=== PATIENT | female | born 1960 | race Caucasian/White ===

== ENCOUNTER 2022-08-18 10:08 | Day surgery (SDC) | payer OTHER ==
[2022-08-18] MEDS ORDERED: Depo-Medrol 40 MG/ML IM ONE (10:09)
[2022-08-18] MEDS ORDERED: Sodium Chloride 0.9(Preservative Free) 10 ML IJ ONE (10:09)
[2022-08-18] MEDS ORDERED: DIPRIVAN 200 MG/20 ML IV ONE (12:08)
[2022-08-18] MEDS ORDERED: Lactated Ringers 1,000 ML IV ONE (14:07)
--- NOTE | 2022-08-18 16:31 | XRAY ---
Indication: Left L3-L5 transforaminal [place]. Intraoperative fluoroscopy provided for 23 seconds. 4 digital spot image submitted for interpretation demonstrates posterior needle tips projecting over the expected left L3 and L4 nerve roots. Small amount of contrast injected for needle tip placement. Correlate with intraoperative findings/report.
--- NOTE | 2022-08-18 16:37 | XRAY ---
23 seconds of fluoroscopy was used in surgery for a left L3-L5 transforaminal [place].
== END 2022-08-18 12:40 | disposition home or self-care (01) ==
LOC: SDC-PAIN 10:08
PROVIDERS: ATTEND Psychiatry & Neurology Pain Medicine
DX: M54.16 Radiculopathy, lumbar region (principal); Z79.899 Other long term (current) drug therapy
CPT/HCPCS: 64483; 64484; 72100; 77003; J1030; J2704; Q9966

== ENCOUNTER 2022-11-10 14:47 | Day surgery (SDC) | payer OTHER ==
[2022-11-10] MEDS ORDERED: BUPIVACAINE 0.5% VIAL IJ ONE (14:48)
[2022-11-10] MEDS ORDERED: LIDOCAINE HCL 1% 50 MG/5 ML VL PF IJ ONE (14:48)
[2022-11-10] MEDS ORDERED: Depo-Medrol 40 MG/ML IM ONE (14:48)
--- NOTE | 2022-11-10 16:42 | XRAY ---
Indication: Left knee injection. Intraoperative fluoroscopy provided for 8 seconds. Single digital spot image submitted for interpretation demonstrates needle tip projecting over the left femur intercondylar notch. Small amount of contrast injected for needle tip placement. Correlate with intraoperative findings/report.
--- NOTE | 2022-11-10 16:53 | XRAY ---
8 seconds of fluoroscopy was used in surgery for a left intra-articular knee injection.
== END 2022-11-10 16:15 | disposition home or self-care (01) ==
LOC: SDC-PAIN 14:47
PROVIDERS: ATTEND Psychiatry & Neurology Pain Medicine
DX: M17.12 Unilateral primary osteoarthritis, left knee (principal); Z79.899 Other long term (current) drug therapy
CPT/HCPCS: 20610; 73560; 77002; J1030; J2001; Q9966

== ENCOUNTER 2022-12-01 06:41 | Day surgery (SDC) | payer OTHER ==
[2022-12-01] MEDS ORDERED: BUPIVACAINE 0.5% VIAL IJ ONE (06:42)
[2022-12-01] MEDS ORDERED: LIDOCAINE HCL 1% 50 MG/5 ML VL PF IJ ONE (06:42)
[2022-12-01] MEDS ORDERED: Depo-Medrol 40 MG/ML IM ONE (06:42)
--- NOTE | 2022-12-01 10:19 | XRAY ---
Indication: Right knee injection. Intraoperative fluoroscopy provided for 9 seconds. Single digital spot image submitted for interpretation demonstrates needle tip projecting over the right femur intercondylar notch. Small amount of contrast injected for needle tip placement. Correlate with intraoperative findings/report.
--- NOTE | 2022-12-01 13:30 | XRAY ---
9 seconds of fluoroscopy was used in surgery for a right intra-articular knee injection.
== END 2022-12-01 08:45 | disposition home or self-care (01) ==
LOC: SDC-PAIN 06:41
PROVIDERS: ATTEND Psychiatry & Neurology Pain Medicine
DX: M17.11 Unilateral primary osteoarthritis, right knee (principal); Z79.899 Other long term (current) drug therapy
CPT/HCPCS: 20610; 73560; 77002; J1030; J2001; Q9966